=== PATIENT | male | born 1950 | race Caucasian/White ===

== ENCOUNTER 2020-06-12 13:12 | Outpatient (CLI) | payer MEDICARE, BC ==
--- NOTE | 2020-06-12 14:06 | ULT ---
BILATERAL CAROTID DOPPLER ULTRASOUND: 06/12/20 HISTORY: Occlusion/stenosis of right [employer]ICE. TECHNIQUE: Greer scale ultrasound with color flow and spectral Doppler imaging of the extracranial carotid artery system performed bilaterally. FINDINGS: There is plaque formation on both sides. The peak systolic velocity in the right ICA measures 156 cm/s with an end diastolic velocity of 41 cm /s and systolic ratio of 1.34. The peak systolic velocity in the left ICA measures 87 cm/s with an end diastolic velocity of 21 cm/s and systolic ratio of 0.71. Flow in both vertebral arteries remains antegrade. IMPRESSION: Moderate (50-69%) stenosis involving the right ICA. POS: AH
== END 2020-06-12 13:13 | disposition home or self-care (01) ==
LOC: BICULT 13:12
PROVIDERS: ATTEND Psychiatry & Neurology Neurology
DX: I66.21 Occlusion and stenosis of right posterior cerebral artery (principal)
CPT/HCPCS: 93880